=== PATIENT | female | born 1980 | race Caucasian/White ===

== ENCOUNTER 2019-10-27 00:23 | Outpatient (CLI) | payer BC, OTHER, SELFPAY ==
[2019-10-27 20:58] LABS: SARS-CoV-2 RNA PCR Negative
== END 2019-10-27 00:24 | disposition home or self-care (01) ==
LOC: ANHCOVIDDT 00:23
PROVIDERS: PCP Nurse Practitioner Family; Visit Provider Internal Medicine Gastroenterology
DX: Z01.812 Encounter for preprocedural laboratory examination (principal); Z11.59 Encounter for screening for other viral diseases
CPT/HCPCS: 87635; C9803; U0003

== ENCOUNTER 2019-10-30 01:03 | Day surgery (SDC) | payer BC, OTHER, SELFPAY ==
[2019-10-24 10:41] VITALS: BMI 24.7
--- NOTE | 2019-10-30 08:54 | WPDANESEPPF ---
Anes - Initial Pre Proc Eval Procedure: Operation Date: 10/30/19 12:30 Proposed Procedures p Screening Colonoscopy - Darren Anthony DO Date/Time: 10/30/19 08:54 Surgeon: Darren Anthony DO Pre Op Diagnosis: neoplasm screening Patient Data Age: 39 Gender: F Height: 1.68 m Weight: 69.5 kg Allergies Allergy/AdvReac Type Severity Reaction Status Date / Time No Known Allergies Allergy Verified 10/30/19 11:12 Home Medications Medication Instructions Recorded Confirmed Type No Home Medications 10/24/19 10/30/19 History Patient hx anesthesia problems: none Family hx anesthesia problems: none Anes - Eval Final PreProcedure Day of Procedure 10/30/19 08:54 Patient weight: normal Heart: regular rate and rhythm Lungs: clear to auscultation and normal air movement Airway: Mallampati scale class II Neurological: alert and oriented Last oral intake: >/= 8 hours ASA classification: I Emergent: no Anesthetic plan: proceed Anesthesia type and monitoring: general GIVS Informed Consent: The patient's anesthetic plan and its attendant risks and benefits were discussed with the patient/family/POA. Questions were solicited and answers provided to the satisfaction of the patient/family/POA.
[2019-10-30] MEDS: LACTATED RINGERS 1,000 ML 150 ML IV CONT (11:23)
[2019-10-30 11:24] VITALS: BP 107/74; PULSE 108; RESP 20; TEMP 36.7; O2SAT 99; BMI 24.0
--- NOTE | 2019-10-30 12:40 | PM.IMHP ---
H&P: HPI History of Present Illness Chief complaint: neoplasm screening Narrative: Reason for visit colonoscopy. This very pleasant lady seen in consultation request of the primary. Impression: Screening and surveillance colonoscopy. The patient has history adenomatous colon polyps and a family history of colorectal cancer. Recommendation: Colonoscopy. History: This very pleasant lady is here for screening and surveillance colonoscopy. She has a history adenomatous colon polyps and a family history of colorectal cancer. GI review systems is unremarkable. Physical examination: General: very pleasant patient in no acute distress. HEENT: Head was normocephalic sclerae is clear mouth without masses neck was supple. Heart: Rate rhythm regular without S3 or S4. Lungs: CTA. Abdomen: Soft with no guarding or rigidity. Bowel sounds were active. Neurologic: Cranial nerves 2 through 12 intact. No focal defects. No clonus. Musculoskeletal system: Revealed no joint tenderness or swelling no muscle atrophy. Extremities: Reveal no significant edema. Skin: Warm and dry with normal turgor. Mental status: intact. Patient is alert and oriented. Review of Systems Review of Systems: All systems reviewed & are unremarkable except as noted in HPI and below Meds Home Medications and Allergies Home Medications Medication Instructions Recorded Confirmed Type No Home Medications 10/24/19 10/30/19 History Allergies Allergy/AdvReac Type Severity Reaction Status Date / Time No Known Allergies Allergy Verified 10/30/19 11:12 Vital Signs Vital Signs - 24 hr 10/30/19 11:24 Temperature 36.7 C Pulse Rate 108 H Respiratory Rate 20 Blood Pressure 107/74 Pulse Oximetry 99
[2019-10-30 13:18] VITALS: BP 79/47; PULSE 72; RESP 20; O2SAT 99
[2019-10-30 13:28] VITALS: BP 89/59; PULSE 75; RESP 21; O2SAT 99
[2019-10-30 13:38] VITALS: BP 103/68; PULSE 67; RESP 19; O2SAT 100
== END 2019-10-30 13:58 | disposition home or self-care (01) ==
PROVIDERS: PCP Nurse Practitioner Family; Visit Provider Internal Medicine Gastroenterology
PROC: 0DJD8ZZ Inspection of Lower Intestinal Tract, Via Natural or Artificial Opening Endoscopic (ICD-10-PCS; CPT 45378; principal; 2019-10-30 12:30)
DX: Z12.11 Encounter for screening for malignant neoplasm of colon (principal); D12.4 Benign neoplasm of descending colon; K63.5 Polyp of colon; Z80.0 Family history of malignant neoplasm of digestive organs
CPT/HCPCS: 45385; 88305; J2001; J2704; J7120

== ENCOUNTER 2025-01-15 01:13 | Day surgery (SDC) | payer OTHER, SELFPAY ==
[2024-12-28 14:12] VITALS: BMI 26.6
--- OUTSIDE RECORDS SUMMARY | 2025-01-15 01:16 | XMS_ITS | Clinical Summary ---
Author Organization [facility] [employer] Address [address] [place] [address] Care Team Providers Care Instrumentation Technologist Name Role Phone Norberto Aguirre MD Primary Care Provider Source Comments [facility],non-owned Affiliates and Associated Physician Practices is amultiple site organization consisting of ambulatory clinics and hospital sitesin [place], [place], [place] and [place]. This disclosure is being madepursuant to the Care Everywhere program and may not contain all information available regarding this patient. Last updated 18.[facility] Allergies No known active allergies Medications * Be aware that medications may not be up to date on this document. Alwaysverify current medications with the patient. 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 Gender Identity Not on file Sexual Orientation Not on file Last Filed Vital Signs Vital Sign Reading Time Taken Comments Blood Pressure 120/74 11/02/2018 6:41 PM CDT Pulse 81 11/02/2018 6:41 PM CDT Temperature 37.2 C (98.9 F) 11/02/2018 6:41 PM CDT Respiratory Rate 16 11/02/2018 6:41 PM CDT Oxygen Saturation 98% 11/02/2018 6:41 PM CDT Inhaled Oxygen Concentration - - Weight 65.8 kg (145 lb) 11/02/2018 6:41 PM CDT Height 167.6 cm (5' 6) 11/02/2018 6:41 PM CDT Body Mass Index 23.4 11/02/2018 6:41 PM CDT Plan of Treatment Health Maintenance Due Date Last Done Comments COLOGUARD (AGES 45-75) - COL ON CA SCREENING 1978 COLON MONITORING 1978 COLONOSCOPY - COLON CA SCREENING 1978 CT COLONOGRAPHY - COLON CA SCREENING 1978 Colorectal Cancer Screening 1978 FIT - COLON CA SCREENING 1978 FLEX SIG - COLON CA SCREENING 1978 LIPID TESTING 1978 MAMMOGRAM 1978 HIV SCREENING 1993 HEPATITIS C SCREENING 05/27/1996 DTAP/TDAP/TD VACCINES (1 - Tdap) 1997 HEPATITIS B VACCINE (1 of 3 - 19+ 3-dose series) 1997 DEPRESSION SCREENING 05/03/2024 COVID-19 VACCINE (1 - 2023-2 5 season) 2025 INFLUENZA VACCINE (#1) 2025 01/29/2016 ZOSTER VACCINE (1 of 2) 2028 HIB VACCINE Aged Out No longer eligi ble based on patient's age to complete this topic HPV VACCINE Aged Out No longer eligi ble based on patient's age to complete this topic MENINGOCOCCAL (Group B) VACC INE SHARED DECISION-MAKING Aged Out No longer eligibl e based on patient's age to complete this topic MENINGOCOCCAL GROUPS A/C/Y/W VACCINE Aged Out No longer eligible b ased on patient's age to complete this topic PNEUMOCOCCAL VACCINE Aged Out No long er eligible based on patient's age to complete this topic Insurance [facility] AETNA Care Teams Instrumentation Technologist Relationship Specialty Start Date End Date Norberto Aguirre MD [address] [address] PCP - General 10/31/19
--- OUTSIDE RECORDS SUMMARY | 2025-01-15 01:16 | XMS_ITS | Clinical Summary ---
Author Organization [facility] Address [address], [address] [address] Phone Care Team Providers Care Rn Complex Care Name Role Phone Nu Erickson APRN, CNP Primary Care Pro vider Social History Tobacco Use Types Packs/Day Years Used Date Smoking Tobacco: Never Assessed Comments Unknown Sex and Gender Information Value Date Recorded Sex Assigned at Not on file Legal Sex Female 11:10 AM CDT Gender Identity Not on file Sexual Orientation Not on file Plan of Treatment Health Maintenance Due Date Last Done Comments Hepatitis C Virus (HCV) Screening 1978 TdaP Immunization 1978 Hepatitis B Immunization (1 of 3 - 19+ 3-dose series) 1997 Pap Smear 1999 Cervical Cancer Screening (CCS) 2008 HPV/Cotest 2008 Colonoscopy 10/29/2020 10/30/2019, 10/19/2019, 09/19/2018 Colorectal Cancer Screening 10/29/2020 Cologuard 2023 Immunochemical Fecal Occult Blood 2023 SARS-COV-2 Immunization ( season) 2024 Influenza Immunization (#1) 2025 Respiratory Syncytial Virus (RSV) Immunization (Adult) (1 - 1-dose 75+ series) 2053 Human Papillomavirus (HPV) Immunization Aged Out No longer eligible b ased on patient's age to complete this topic Meningococcal Immunization (ACWY) Aged Out No longer eligible b ased on patient's age to complete this topic Pneumococcal Immunization Combined Aged Out No longer eligible b ased on patient's age to complete this topic Rotavirus Immunization Aged Out No lo nger eligible based on patient's age to complete this topic Procedures Procedure Name Priority Date/Time Associated Diagnosis Comments COLONOSCOPY Routine 10/30/2019 from Last 3 Months or Most Recently Relevant to Health Maintenance Results * COLONOSCOPY (10/30/2019) Darren Anthony DO PROCEDURE/MINOR SURGICAL ORDERA BLES Final Result from Last 3 Months or Most Recently Relevant to Health Maintenance Insurance [facility] Care Teams Rn Complex Care Relationship Specialty Start Date End Date Nu Erickson, DRESSMAKING TEACHER, MATERIAL PLANNER [address] [place] [address] [place] [address] PCP - General Certified Nurse Practitioner 08/08/18
[2025-01-15 09:53] VITALS: BP 115/80; PULSE 89; RESP 18; TEMP 37; O2SAT 100
[2025-01-15] MEDS: LACTATED RINGERS 1,000 ML 150 ML IV CONT (10:08)
[2025-01-15 10:11] LABS: BEDSIDEPREGUCG Negative (Negative)
--- NOTE | 2025-01-15 10:43 | P.HP_ITS ---
H&P: HPI History of Present Illness Date/Time: 01/15/25 10:43 Chief Complaint: Family history of colon cancer-history of polyps Narrative: This patient has family history of colorectal cancer. her father had c olorectal cancer, and her mother has colon polyps. In addition, the patient's last colonoscopy was 5 years ago, finding polyps. Review of Systems 2 Review of Systems: All systems reviewed & are unremarkable except as noted in HPI and below PMFSH Surgical History Surgical History H/O gynecological procedure hysteroscopy, hysteroscopic myomectomy Status post hysteroscopic ablation of endometrium 2019 History of tubal ligation Family History Family History (Updated 10/03/24 @ 14:41 by Leonila Granger) Grandparent Carcinoma of colon Cervical cancer Sibling Kidney malignancy Alcoholism Mother Uterine cancer Father Carcinoma of colon Diabetes mellitus Hypertension Grandparent Lung cancer Cerebrovascular accident Social History Social History (Updated 10/03/24 @ 14:42 by Leonila Granger) Smoking status: Never smoker Alcohol intake: never Drinks per week: 4 Substance use: never Substance use type: does not use Do You Feel Safe in your Home?: Yes Lack of Transportation: No Lack of Food: Never True Current Housing: I Have Housing Concerned About Future Housing: No Difficulty Paying Gas/Electric Bills: No Difficulty Paying for Meds: No Currently Unemployed: No Education: Associate Degree Difficulty w/ Childcare or Family Care: No Living arrangements: with family Occupation/Education: occupation 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 Gender identity (if verbalized by the patient): Female Sexual Orientation (if Verbalized by the Patient): Straight or Heterosexual Spiritual care concerns: No Agree to blood products: No Meds Home Medications and Allergies Home Medications ?Medication ?Instructions ?Recorded ?Confirmed ?Type norethindrone acetate 1 mg-ethinyl 1 tablet PO DAILY # 84 tabs 09/12/24 12/28/24 Rx estradiol 20 mcg tablet spironolactone 50 mg tablet See Rx Instructions .Route 10/30/24 12/28/24 Rx .COMPLEX #30 tabs Allergies Allergy/AdvReac Type Severity Reaction Status Date / Time No Known Allergies Allergy Verified 01/15/25 09:53 Vital Signs Vital Signs - 24 hr 01/15/25 09:53 Temperature 98.6 F Pulse Rate 89 Respiratory Rate 18 Blood Pressure 115/80 Pulse Oximetry 100 Oxygen Delivery Room Air Exam Const: General: cooperative and healthy appearing Resp: Effort & Inspection: normal respiratory effort and able to speak in complete sentences Auscultation: clear to auscultation bilaterally Cardio: Rate: regular rate Rhythm: regular rhythm GI: Inspection: normal to inspection GI Palp: No No hepatosplenomegaly present Auscultation: normal bowel sounds Rectal Exam: deferred Skin: General skin exam: normal color Psych: Appearance: grossly normal Mental Status: mental status grossly normal Assessment and Plan Assessment and plan (1) Family history of colon cancer: Code(s): Z80.0 - Family history of malignant neoplasm of digestive organs Status: Acute Assessment and Plan: The patient is deemed a good candidate for the procedure. Consent signed. Will proceed.
--- NOTE | 2025-01-15 10:59 | WPDANESEPPF ---
Anes - Initial Pre Proc Eval Procedure: Operation Date: 01/15/25 11:00 Proposed Procedures p Screening Colonoscopy - Daniel Araujo MD Date/Time: 01/15/25 10:59 Surgeon: Daniel Araujo MD Pre Op Diagnosis: screening Patient Data Age: 44 Gender: F Height: 1.68 m Weight: 74.3 kg Last Vital Signs Temp 98.6 F 01/15/25 09:53 Pulse 89 01/15/25 09:53 Resp 18 01/15/25 09:53 BP 115/80 01/15/25 09:53 Pulse Ox 100 01/15/25 09:53 O2 Del Method Room Air 01/15/25 09:53 Allergies Allergy/AdvReac Type Severity Reaction Status Date / Time No Known Allergies Allergy Verified 01/15/25 09:53 Home Medications ?Medication ?Instructions ?Recorded ?Confirmed ?Type norethindrone acetate 1 mg-ethinyl 1 tablet PO DAILY #84 tabs 09/12/24 12/28/24 Rx estradiol 20 mcg tablet spironolactone 50 mg tablet See Rx Instructions .Route 10/30/24 12/28/24 Rx .COMPLEX #30 tabs Laboratory Tests 01/15/25 10:09 POC Urine HCG, Qual Negative (Negative) Patient hx anesthesia problems: none Family hx anesthesia problems: none Results Review: All pre-operative results and documents have been reviewed as part of the pre-operative evaluation. [facility] Surgical History Surgical History H/O gynecological procedure hysteroscopy, hysteroscopic myomectomy Status post hysteroscopic ablation of endometrium 2019 History of tubal ligation Family History Family History Grandparent Carcinoma of colon Cervical cancer Sibling Kidney malignancy Alcoholism Mother Uterine cancer Father Carcinoma of colon Diabetes mellitus Hypertension Grandparent Lung cancer Cerebrovascular accident Social History Social History Smoking status: Never smoker Alcohol intake: never Drinks per week: 4 Substance use: never Substance use type: does not use Do You Feel Safe in your Home?: Yes Lack of Transportation: No Lack of Food: Never True Current Housing: I Have Housing Concerned About Future Housing: No Difficulty Paying Gas/Electric Bills: No Difficulty Paying for Meds: No Currently Unemployed: No Education: Associate Degree Difficulty w/ Childcare or Family Care: No Living arrangements: with family Occupation/Education: occupation 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 Gender identity (if verbalized by the patient): Female Sexual Orientation (if Verbalized by the Patient): Straight or Heterosexual Spiritual care concerns: No Agree to blood products: No Anes - Eval Final PreProcedure Day of Procedure 01/15/25 10:59 Patient weight: normal Lungs: normal air movement Airway: Mallampati scale class II Neurological: alert and oriented Last oral intake: >/= 8 hours ASA classification: II Emergent: no Anesthetic plan: proceed Anesthesia type and monitoring: general GIVS and standard monitoring Results Review: All pre-operative results and documents have been reviewed as part of the pre-operative evaluation. Ex smoker, quit 2020. Informed Consent: The patient's anesthetic plan and its attendant risks and benefits were discussed with the patient/family/POA. Questions were solicited and answers provided to the satisfaction of the patient/family/POA.
[2025-01-15 11:37] VITALS: BP 100/67; PULSE 71; RESP 22; O2SAT 100
[2025-01-15 11:47] VITALS: BP 110/75; PULSE 73; RESP 22; O2SAT 100
[2025-01-15 11:57] VITALS: BP 129/82; PULSE 72; RESP 20; O2SAT 100
== END 2025-01-15 12:11 | disposition home or self-care (01) ==
PROVIDERS: Anesthesiology; PCP Nurse Practitioner Family; Referring Provider Nurse Practitioner Family; Visit Provider Internal Medicine Gastroenterology
PROC: 0DJD8ZZ Inspection of Lower Intestinal Tract, Via Natural or Artificial Opening Endoscopic (ICD-10-PCS; CPT 45378; principal; 2025-01-15 11:00)
DX: Z12.11 Encounter for screening for malignant neoplasm of colon (principal); Z98.890 Other specified postprocedural states; Z98.891 History of uterine scar from previous surgery; Z98.51 Tubal ligation status; Z86.0100 Personal history of colon polyps, unspecified; Z87.891 Personal history of nicotine dependence; Z83.719 Family history of colon polyps, unspecified; Z80.0 Family history of malignant neoplasm of digestive organs; Z80.49 Family history of malignant neoplasm of other genital organs; Z80.51 Family history of malignant neoplasm of kidney; Z80.1 Family history of malignant neoplasm of trachea, bronchus and lung
CPT/HCPCS: 45378; J2704; J7120

== ENCOUNTER 2025-02-15 07:49 | Outpatient (CLI) | payer OTHER, SELFPAY ==
--- NOTE | ~2025-02-15 | MM_ITS ---
CORRECTED REPORT addendum added [facility] 02/21/2025 This report was recreated on 02/21/2025. Original report was ADDENDUM This is an addendum to a previously dictated report. Comparison mammogram from 09/16/2023 and 09/09/2022 have become available since the initial dictation. No change in the body of the report, impression, recommendation or BI-RADS category. EXAMINATION: MM screening mimi BI w yajaira HISTORY: Screening TECHNIQUE: Craniocaudal and mediolateral oblique 3-D tomosynthesis images were obtained and synthetic 2-D images were generated. CAD analysis was submitted and interpreted. COMPARISON: No prior mammogram is available for comparison at this institution. BREAST PARENCHYMAL COMPOSITION: The breasts are heterogeneously dense, which may obscure small masses. FINDINGS: There is no evidence of suspicious mass, calcification, or architectural distortion to suggest malignancy. Focal asymmetry in the lower inner quadrant of the left breast, anterior depth. Focal asymmetry in the lower inner quadrant of the left breast, posterior depth. Asymmetry at the level of the posterior nipple line, middle depth, seen in the right MLO projection. IMPRESSION: 1. Focal asymmetry in the lower inner quadrant of the left breast, anterior depth. Focal asymmetry in the lower inner quadrant of the left breast, posterior depth. The study is incomplete. A diagnostic mammogram and a diagnostic ultrasound are recommended. 2. Asymmetry at the level of the posterior nipple line, middle depth, seen in the right MLO projection. The study is incomplete. A diagnostic mammogram and a diagnostic ultrasound are recommended. BI-RADS 0: Incomplete-Need additional imaging evaluation. Reviewed, dictated and finalized at location Q. IMPRESSION: 1. Focal asymmetry in the lower inner quadrant of the left breast, anterior dep th. Focal asymmetry in the lower inner quadrant of the left breast, posterior d epth. The study is incomplete. A diagnostic mammogram and a diagnostic ultrasou nd are recommended. 2. Asymmetry at the level of the posterior nipple line, middle depth, seen in t he right MLO projection. The study is incomplete. A diagnostic mammogram and a diagnostic ultrasound are recommended. BI-RADS 0: Incomplete-Need additional imaging evaluation.
--- OUTSIDE RECORDS SUMMARY | 2025-02-15 07:52 | XMS_ITS | Clinical Summary ---
Author Organization [facility] [employer] Address [address] [place] [address] Care Team Providers Care Senior Water/Wastewater Engineer Name Role Phone Norberto Aguirre MD Primary Care Provider Source Comments [facility] [facility],non-owned Affiliates and Associated Physician Practices is amultiple site organization consisting of ambulatory clinics and hospital sitesin [place], [place], [place] and [place]. This disclosure is being madepursuant to the Care Everywhere program and may not contain all information available regarding this patient. 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
== END 2025-02-15 07:50 | disposition home or self-care (01) ==
PROVIDERS: PCP Nurse Practitioner Family; Visit Provider Obstetrics & Gynecology
DX: Z12.31 Encounter for screening mammogram for malignant neoplasm of breast (principal)
CPT/HCPCS: 77063; 77067

== ENCOUNTER 2025-04-09 13:20 | Outpatient (CLI) | payer OTHER, SELFPAY ==
--- NOTE | ~2025-04-09 | MM_ITS ---
EXAMINATION: MM diagnostic mimi BI w yajaira HISTORY: Additional imaging TECHNIQUE: Craniocaudal and mediolateral oblique 3-D tomosynthesis images were obtained and synthetic 2-D images were generated. CAD analysis was submitted and interpreted. COMPARISON: February 15. Outside studies from 2023 and 2022. BREAST PARENCHYMAL COMPOSITION: Dense: The breasts are heterogeneously dense FINDINGS: The asymmetry previously described in the posterior medial left breast is unchanged thought to represent some asymmetric parenchyma. Asymmetry described in the anteromedial left breast is actually less dense currently than on prior studies. Asymmetry described on the right does not persist on additional imaging. No suspicious masses are seen. There are no suspicious calcifications. No unexplained architectural distortion is seen. There are no skin or nipple abnormalities identified. There is no adenopathy seen on the images submitted. IMPRESSION: No mammographic evidence to suggest malignancy is seen. The patient may return to screening mammography as per ACR guidelines. BI-RADS 2 - Benign. Reviewed, dictated and finalized at location B. [facility]
== END 2025-04-09 13:21 | disposition home or self-care (01) ==
LOC: ANHFOHIMG 13:21
PROVIDERS: PCP Nurse Practitioner Family; Visit Provider Obstetrics & Gynecology
DX: N64.89 Other specified disorders of breast (principal)
CPT/HCPCS: 77062; 77066; G0279